=== PATIENT | male | born 1995 | race Caucasian/White ===

== ENCOUNTER 2016-03-10 10:38 | Day surgery (SDC) | payer OTHER ==
[2016-03-09 12:19] VITALS: Ht 185.4 cm; Wt 90.3 kg
[~2016-03-10] VITALS: Ht 185.4 cm; Wt 90.3 kg
[2016-03-10] VITALS (13 sets, daily range): BP systolic 117–145; BP diastolic 56–83; PULSE 87–112; RESP 10–24
--- NOTE | 2016-03-10 05:16 | CONS ---
DATE OF ADMISSION: 03/10/2016 DATE OF CONSULTATION: CHIEF COMPLAINT: Phimosis. HISTORY OF PRESENT ILLNESS: This is a 21-year-old male who has phimosis. He has never been able to pull the foreskin back and if he tries to pull it back, it does hurt. He has seen a general surgeo n who told him he needs a circumcision. He had no prior surgeries. ALLERGIES: HE HAS NO ALLERGY TO MEDICATIONS. HE IS ALLERGIC, HOWEVER, TO SHELLFISH. PAST MEDICAL HISTORY: He does have a history of arthritis and Raynaud syndrome. MEDICATIONS: None. SOCIAL HISTORY: Sexually active, uses condoms. No history of sexually transmitted disease. REVIEW OF SYSTEMS: Negative except what is mentioned above. PHYSICAL EXAMINATION: GENERAL: Revealed a 21-year-old male who is in no acute distress. HEAD AND NECK: Unremarkable. There is no cervical adenopathy. HEART: Regular. LUNGS: Clear. ABDOMEN: Soft with no abdominal mass palpable. There is no tenderness. GENITALIA: The testis are both in the scrotum and are normal. The penis does have phimosis and it is tight. If forced back it is very painful and turns into paraphimosis. EXTREMITIES: Normal. IMPRESSION: Phimosis. PLAN: To do a circumcision. I have explained to him the procedure, the benefits, the risks, the co mplications, the time off work and the time not having sex and he understood all of that and is agre eable to proceed. Dictated By: KELSY ARANDA/REGIS Conf#: [id number] DID#: [id number]
[~2016-03-10 10:38] MED LIST: CEFAZOLIN 2 GM/50 ML (PMX) 50 ML IVPB SCH
[2016-03-10] MEDS ORDERED: BUPIVACAINE 0.25% (MPF) 30 ML INJ ONE (11:39)
[2016-03-10] MEDS ORDERED: MULTIVITAMIN PO (11:50)
[2016-03-10] MEDS ORDERED: MIDAZOLAM 1 MG/ML 2 ML INJ ONE (12:58)
[2016-03-10] MEDS ORDERED: PROPOFOL 20 ML ONE (12:58)
[2016-03-10] MEDS ORDERED: FENTAnyl 50 MCG/ML VIAL ONE (13:02)
[2016-03-10] MEDS ORDERED: CEFAZOLIN 1 GM INJ ONE (13:06)
[2016-03-10] MEDS ORDERED: BUPIVACAINE 0.5% (SDV) 30 ML INJ ONE (13:24)
[2016-03-10] MEDS ORDERED: ONDANSETRON 4 MG INJ IV PRN (13:30)
[2016-03-10] MEDS ORDERED: MEPERIDINE 25 MG INJ IV PRN (13:30)
[2016-03-10] MEDS ORDERED: DIPHENHYDRAMINE 50 MG INJ IV PRN (13:30)
[2016-03-10] MEDS ORDERED: OXYCODONE/ACETAMINOPHEN (5/325) TAB PO PRN ×3 (13:30→19:00)
[2016-03-10] MEDS ORDERED: METOCLOPRAMIDE 10 MG INJ IV PRN (13:30)
[2016-03-10] MEDS ORDERED: HYDROmorphONE (0.2 MG/ML) 10ML SYG IV PRN ×3 (13:30)
[2016-03-10] MEDS ORDERED: ONDANSETRON 4 MG INJ ONE (13:46)
--- NOTE | 2016-03-11 17:34 | OPR ---
DATE OF OPERATION: 03/10/2016 PREOPERATIVE DIAGNOSIS: Phimosis and balanitis. POSTOPERATIVE DIAGNOSIS: Phimosis and balanitis. OPERATION PERFORMED: Circumcision. TECHNIQUE: The patient was brought to the operating room. The patient was given general anesthesia , positioned in the supine position. Time out was done. The patient was identified by his name, bi rth date, and the procedure. The patient received 2 grams of Ancef IV at the start of the procedure . Then, the genital area was prepped and draped in the usual sterile manner. The foreskin at the l evel of the pemberton was then marked and then incised, and then the foreskin was pulled back the penis was painted again with betadine solution. Then another incision was made about 1 cm proximal to th e pemberton, and the skin between the 2 incisions was removed. All the bleeders were electrocoagulated , and good hemostasis was obtained. The subcutaneous tissue was approximated with 3-0 Vicryl interr upted sutures at the 9, 12, 3, and 6 o'clock positions and the skin approximated with 3-0 Vicryl int errupted sutures. At the frenular area was sutured with 4-0 Vicryl running interlocked sutures devin use there was frenular tissue that was pulling on the meatus, and that was released and cut and then sutured in a perpendicular line along the circumcision incision. At the end of the procedure, the patient was given 0.5% Marcaine injection around the base of the penis for analgesia, and the wound was covered with Vaseline gauze and a Siva. The patient was then transferred to recovery room in s table and satisfactory condition. Dictated By: KELSY ARANDA/REGIS Conf#: [id number] DID#: [id number]
== END 2016-03-10 16:35 | disposition home or self-care (01) ==
LOC: SDS 10:38
PROVIDERS: ATTEND Urology
DX: N47.1 Phimosis (principal); N48.1 Balanitis
CPT/HCPCS: 54161; 88304; J0690; J2250; J2405; J3010; Z7512; Z7610